=== PATIENT | male | born 1955 | race Caucasian/White ===

== ENCOUNTER 2020-09-08 08:02 | Outpatient (CLI) | payer MEDICARE, OTHER ==
[2020-09-08 08:48] LABS: Estimated GFR-MDRD - POC Greater than 90
== END 2020-09-08 08:03 | disposition home or self-care (01) ==
LOC: CSHCT 08:02
PROVIDERS: ATTEND Urology
DX: R31.0 Gross hematuria (principal); M89.552 Osteolysis, left thigh; R19.8 Other specified symptoms and signs involving the digestive system and abdomen
CPT/HCPCS: 74178; 82565